=== PATIENT | female | born 1970 | race Caucasian/White ===

== ENCOUNTER → 2016-12-27 | Day surgery (SDC) | payer BC ==
[~2016-12-27] VITALS: Ht 162.6 cm; Wt 49.4 kg
[2016-12-27] VITALS (10 sets, daily range): BP systolic 96–110; BP diastolic 54–65
[~2016-12-27] MED LIST: BSS 15ml BTL ONE; Bacitracin Oint 15gm Tube TOPIC ONE; Cocaine 4% Vial TOPIC ONE; DiphenhydrAMINE 50mg/ml Inj IVP PRN; Glycopyrrolate 0.2mg/ml 1ml Vial ONE; Ketorolac 30mg Inj ONE; LR 1000ml 1,000 ML IVLG SCH; LR 1000ml ONE; Lidocaine 1% 10mg/ml/Epi 0.005mg/ml 30ml vial INJ ONE; Meperidine 25mg/ml Inj IV PRN; Metoclopramide 10mg/2ml Inj IVP PRN; Midazolam 2mg/2ml Inj IVP PRN; Midazolam 2mg/2ml Inj ONE; NKM; NS Irrig 1000ml IRRIG ONE; NS Irrig 1000ml ONE; Neostigmine 1mg/ml 10ml Inj ONE; Oxymetazoline 0.05% Na Spray 30ml NASAL ONE; Propofol 10mg/ml 20ml IV ONE; Sterile Water Irrig 1000ml IRRIG ONE; Zemuron 50mg/5ml Inj IV ONE; fentaNYL 100 mcg/2 mL IV ONE; fentaNYL 100 mcg/2 mL IV PRN
--- NOTE | 2016-12-27 11:20 | Pre-Procedure Note/Attestation ---
Pre-Procedure Note/Attestation Complete Prior to Procedure Planned Procedure: bilateral - septoplasty, bilateral inferior turbinectomeis with intramural coagulation, nasal reconstruction with possible spetal cartilage , Goretex, and bank rib cartilage Procedure Narrative: nasal obstruction and deformity creating a bilateral nasal obstruction Indications for Procedure Pre-Operative Diagnosis: septal deviation, bilateral hypertrophied inferior turbinates, obstructing nasal deformity Attestation I attest that I discussed the nature of the procedure; its benefits; risks and complications; and alternatives (and the risks and benefits of such alternatives ), prior to the procedure, with the patient (or the patient's legal hvac sales representative). I attest that, if there was a reasonable possibility of needing a blood transfusion, the patient (or the patient's legal hvac sales representative) was given the [place] [employer] standardized written summary, pursuant to the Gurpreet Tata Blood Safety Act ([place] Health and Safety Code # 1645, as amended). I attest that I re-evaluated the patient just prior to the surgery and that there has been no change in the patient's H&P, except as documented below: NAY ARVIZU Dec 27, 2016 11:20
--- NOTE | 2016-12-27 12:17 | Anethesia Preoperative Eval ---
Anesthesia Pre-op PMH/ROS General Date of Evaluation: Dec 27, 2016 Time of Evaluation: 11:10 Anesthesiologist: Juan ASA Score: ASA 2 Mallampati Score Class I : Soft palate, uvula, fauces, pillars visible Class II: Soft palate, uvula, fauces visible Class III: Soft palate, base of uvula visible Class IV: Only hard plate visible Mallampati Classification: Class II Surgeon: Guzman Diagnosis: Nasal septum deviation Surgical Procedure: Septoplasty. Turbinate ablasion Anesthesia History: none Family History: no anesthesia problems Allergies: Coded Allergies: PENICILLINS (Verified Allergy, Unknown, 12/23/16) SULFA (SULFONAMIDE ANTIBIOTICS) (Verified Allergy, Unknown, 12/23/16) Past Medical History Cardiovascular: Denies: CAD, HTN, [place], arrhythmia, other, valve dz Pulmonary: Reports: other - recurrent sinusitis, Denies: COPD, MARITO, asthma Gastrointestinal/Genitourinary: Denies: CRI, ESRD, GERD, other Neurologic/Psychiatric: Denies: CVA, TIA, dementia, depression/anxiety, other Endocrine: Denies: DM, hypothyroidism, other, steroids HEENT: Denies: [place] (L), [place] (R), cataract (L), cataract (R), glaucoma, other Hematology/Immune: Denies: DVT, anemia, bleeding disorder, other Musculoskeletal/Integumentary: Denies: DDD, DJD, OA, RA, edema, other PMH Narrative: as above PSxH Narrative: nasal Sx. Anesthesia Pre-op Phys. Exam Physician Exam Last Vital Signs Date Time Temp Pulse Resp B/P Pulse Ox O2 Delivery O2 Flow Rate FiO2 12/27/16 09:53 98.2 59 18 108/61 100 Room Air Constitutional: NAD Neurologic: CN 2-12 intact Cardiovascular: RRR, no M/R/G Respiratory: CTA Gastrointestinal: S/NT/ND Airway Exam Mallampati Score: Class II MO: full Neck: flexible ROM: full Teeth: intact Dentures: no lower, no upper Anesthesia Pre-op A/P Labs see chart Urine Test Test 12/27/16 09:20 Urine HCG, Qualitative Negative Studies Pre-op Studies: EKG - NSR Risk Assessment & Plan Assessment: ASA 2 Plan: GA with ETT BIS monitoring PONV prevention Status Change Before Surgery: No Pre-Antibiotics Drug: Levofloxacin 500mg Given Within 1 Hr of Incision: Yes Time Given: 12:17 LEROY ACEVEDO M.D. Dec 27, 2016 12:17
--- NOTE | 2016-12-27 16:01 | Brief Operative Note ---
Immediate Post Operative Note Operative Note Pre-op Diagnosis: septal deviation, bilateral hypertrophied inferior turbinates, obstructing nasal deformity Procedure: septoplasty, bilateral inferior turbinectomies with intramural coagulation, repair of obstructing nasal deformity with septal cartilage graft Post-op Diagnosis: same as pre-op Surgeon: Wing Arvizu M.D.+ Anesthesiologist: Juan Anesthesia: MAC Specimen: yes - septum Complications: none Condition: stable Estimated Blood Loss: minimal Drains: none Packing: telfa Implant(s) used?: Yes - septal cartilage WING ARVIZU Dec 27, 2016 16:01
--- NOTE | 2016-12-28 01:19 | Operative Note - Dictated ---
DATE OF OPERATION: 12/27/2016 SURGEON: Wing Hinds M.D. ANESTHESIOLOGIST: Anthony Martinez M.D. ANESTHESIA: MAC. PREOPERATIVE DIAGNOSES: 1. Septal deviation. 2. Bilateral hypertrophied inferior turbinates. 3. Obstructing nasal deformity. POSTOPERATIVE DIAGNOSES: 1. Septal deviation. 2. Bilateral hypertrophied inferior turbinates. 3. Obstructing nasal deformity. PROCEDURES: 1. Septoplasty. 2. Bilateral inferior turbinectomies with intramural coagulation. 3. Repair of obstructing nasal deformity with septal cartilage and left internal valve rotation advancement flap. INDICATION FOR SURGERY: The patient is a 46-year-old, female, who complains of bilateral nasal obstruction unrelieved by fluticasone or Azelastine. Her examination revealed a S-shaped septal deviation with bilateral hypertrophied inferior turbinates. Further examination revealed collapse of the internal valves both laterally and at the junction of the upper lateral cartilage with the septum further narrowing the left nasal valve inflow tract. The right lower lateral cartilage was found to be depressed also narrowing the lateral aspect of the right nasal inflow tract. Because of the patient's nasal obstruction and then responds to intranasal medication she is now being brought to the operating room for surgical repair. PROCEDURE AND FINDINGS: The patient was brought to the operating room while premedicated and placed in supine position on the operating room table. Sterile marking pen was used to demarcate the collapse of the internal valves and the right mid lateral lower cartilage. There was also an area of increased tension over the anterior dorsum, which is further narrowing the internal valves bilaterally. This combined with the patient's S-shaped septal deviation, especially on the left side where the perpendicular plate of the ethmoid and vomer bone was so deviated and approximated the left inferior turbinate. The inferior turbinates were also found to be significantly hypertrophied given the patient's significant bilateral nasal airway obstruction. Wing Hinds M.D. DR: MAI JOB#: [id number] CC: MARIAELENA
--- NOTE | 2016-12-28 08:09 | Operative Note - Dictated ---
DATE OF OPERATION: 12/27/2016 SURGEON: Wing Hinds M.D. ANESTHESIOLOGIST: Anthony Martinez M.D. PREOPERATIVE DIAGNOSES: 1. Septal deviation. 2. Bilateral hypertrophied inferior turbinates. 3. Obstructing nasal deformity. POSTOPERATIVE DIAGNOSES: 1. Septal deviation. 2. Bilateral hypertrophied inferior turbinates. 3. Obstructing nasal deformity. PROCEDURES: 1. Septoplasty. 2. Bilateral inferior turbinectomies with intramural coagulation. 3. Repair of bilateral collapsed internal valves with a left rotation advancement flap,bilateral septal cartilage implants to collapsed internal valves, and repair of tension septum INDICATION FOR SURGERY: The patient is a 46-year-old female who complains of left greater than right nasal airway obstruction for months. The patient has tried many modalities with no improvement in her nasal airway. These modalities include Astelin nasal spray, fluticasone nasal spray, and acupuncture. Because of the patient's persistent nasal obstruction, which has been unresponsive to intranasal sprays and even acupuncture, she is now being brought to the operating room for surgical repair. Description Of Procedure And Findings: The patient was brought to the operating room while premedicated and placed in supine position on the operating room table. A sterile marking pen was used to demarcate the area of the tension septum and the lateral internal valve collapse. The patient then underwent endotracheal intubation followed by intravenous sedation. The nasal cavity was sprayed with 0.25% Jose-Synephrine. After a suitable period of vasoconstriction, the intranasal cavity was prepped with a sterile Q-tip saturated Betadine. Approximately 30 mL of 1% Xylocaine with 1:100,000 epinephrine were used to inject the nasal and septal frameworks. It was of note that the patient had significant scar tissue throughout the external nasal region as well as the septum. The intranasal cavity was packed with less than 200 mg of cocaine on intranasal packing. The patient was then prepped and draped in the usual sterile fashion. After a suitable period of vasoconstriction, the packing was removed. Sterile Q-tips were again used to sterilize the intranasal cavity. The #15 blade was then used to crosshatch between the cartilage incision as well as the inferior septum connection with the columella skin. With a #15 blade, an incision was made in the upper lower lateral cartilage bilaterally and carried to the septal angle and then along the inferior aspect of the septum all the way to the floor of the nose at right side and partially on the left. Extensive undermining was performed running into significant scar tissue. Examination of the area revealed a prominent portion of dorsal cartilage and bone protruding the overlying skin and narrowing the anterior aspect of the internal valves. This was taken down sharply until the tension of the valves was released. The incision was then made along the inferior aspect of both lower lateral cartilage. Extensive undermining was performed beneath the area demarcated which had been outlined externally corresponding to the region of the internal valve collapse. The right lower lateral cartilage was then delivered. Examination revealed that the very lateral aspect of the lower lateral cartilage had been removed and there was significant buckling of the remaining lower lateral cartilage. This was then placed back in position. The areas which have been undermined were then rinsed with Betadine solution. My attention was then turned to the septal deviation. The right inferior septal incision, which had been previously incised was then carried down through dense scar tissue down to the cartilage. The scar tissue was found to be stuck to the underlying cartilage. Proceeding meticulously using sharp and blunt dissection, the right mucoperichondrial mucoperiosteal flap was eventually elevated. The cartilage appeared to be quite floppy, which made incision in the septum very difficult. Eventually, incision was made between the cartilage and bony septum, and a left mucoperiosteal flap was then elevated. At that portion of overriding and obstructing, perpendicular plate of the ethmoid and vomer bone was incised in strips from their remaining attachments and removed from the field of operation. This alleviated the severe left bony deviation. A similar procedure was performed on the cartilaginous septum maintaining good anterior and inferior support. Cartilage was removed from the field of operation and placed in Betadine solution. The mucoperichondrium was then freed from the left anterior septal cartilage and extended posteriorly beneath the area of the valve collapse at the junction of the septum with the upper lateral cartilage. Once this was elevated, a back cut was then performed as well as a vertical cut superiorly. The tissue was released and then rotated anterolaterally alleviating the internal valve collapse anteriorly. A fresh sterile field was then created and the cartilaginous septum, which was soaked in Betadine solution, was brought into the field. The cartilage was cut to specifications to supportl the areas of collapse of the internal valves bilaterally. A suture of 5-0 plain was placed in the anterior and posterior aspects of the cartilage. The needles were then placed in the pockets created and brought up thru the skin anteriorly and posteriorly. Cartilage was then slipped into place. Examination of the right septal cartilage reveals it was twisted slightly. This was able to be maneuvered into the correct position. The sutures were then tightened to the external skin and secured in place with Steri-Strips. A similar procedure was performed at the area of collapse of the lateral aspect of the left internal valve. The sutures were then tightened once the cartilage was found to be in good position and secured to the outer skin. The pocket were then rinsed with Betadine solution. Then the incisions were closed with interrupted sutures of 5-0 plain. Remaining incisions along the lower lateral cartilage bilaterally were also reapproximated with interrupted sutures of 5-0 plain. Bipolar intramural coagulation of both inferior turbinates was then performed. An incision was made in the undersurface of both inferior turbinates and mucosa stripped to the underlying bone. The inferior turbinates were then outfractured and small bones were removed from the pocket. Re-examination now revealed a good bilateral nasal airway. All blood was suctioned from the nose and nasopharynx area. A 4-0 plain was used to close the between the cartilage incision at the area previously crosshatched as well as the incision made at the septum columella junction. The inferior septal incision was then closed with interrupted sutures of 4-0 plain and the septum was splinted with interrupted sutures of 4-0 plain. Telfa coated with bacitracin ointment was secured intranasally. A sterile dressing consisting of Steri-Strips, adhesive tape, and a cast were then secured in place. The procedure was terminated. The patient tolerated the procedure well and left the operating room in satisfactory condition. ESTIMATED BLOOD LOSS: 30 mL. SPONGE AND NEEDLE COUNT: Correct. Wing Hinds M.D. DR: ALFRED JOB#: [id number] CC: MARIAELENA
--- NOTE | 2016-12-28 11:21 | Immediate Post-Op Evaluation ---
Immediate Post-Op Evalulation Immediate Post-Op Evalulation Procedure: Septoplasty bilateral turbinate ablasion Date of Evaluation: Dec 27, 2016 Time of Evaluation: 16:50 IV Fluids: 1200 Blood Products: none Estimated Blood Loss: 50 Urinary Output: 600 Blood Pressure Systolic: 116 Blood Pressure Diastolic: 72 Pulse Rate: 74 Respiratory Rate: 20 O2 Sat by Pulse Oximetry: 99 Temperature (Fahrenheit): 98.2 Pain Score (1-10): 2 Nausea: No Vomiting: No Complications none Patient Status: awake, patent, extubated, none Hydration Status: adequate LEROY ACEVEDO M.D. Dec 28, 2016 11:21
[2016-12-28 11:22] VITALS: BP 128/64
--- NOTE | 2016-12-28 11:22 | 48 Hour Post Anesthesia Eval ---
Post Anesthesia Evaluation Procedure: Septoplasty bilateral turbinate ablasion Date of Evaluation: Dec 27, 2016 Time of Evaluation: 17:10 Blood Pressure Systolic: 128 0: 64 Pulse Rate: 74 Respiratory Rate: 18 Temperature (Fahrenheit): 97.8 O2 Sat by Pulse Oximetry: 99 Airway: patent Nausea: No Vomiting: No Pain Intensity: 2 Hydration Status: adequate Cardiopulmonary Status: stable Mental Status/LOC: patient returned to baseline Follow-up Care/Observations: n/a Post-Anesthesia Complications: none Follow-up care needed: ready to discharge LEROY ACEVEDO M.D. Dec 28, 2016 11:22
--- NOTE | 2016-12-30 12:02 | Cardiology Report ---
APPROVED REPORT EKG Measurement Heart [id number] Sinus bradycardia Otherwise normal ECG
== END | disposition home or self-care (01) ==
LOC: SUR 09:08
DX: J34.2 Deviated nasal septum (principal); J34.3 Hypertrophy of nasal turbinates; M95.0 Acquired deformity of nose; J34.89 Other specified disorders of nose and nasal sinuses; Z88.0 Allergy status to penicillin; Z88.2 Allergy status to sulfonamides
CPT/HCPCS: 14040; 30420; 30802; 81025; 93005; J1885; J1956; J2250; J2405; J2704; J2710; J2765; J3010; J7120; 94003; 94150